=== PATIENT | male | born 1950 | race Caucasian/White ===

== ENCOUNTER → 2021-07-09 | Outpatient (CLI) | payer MEDICARE, OTHER ==
[~2021-07-09] MED LIST: ALLOPURINOL100 MG PO; ANORO ELLIPTA1 EACH INH; AUGMENTIN 875-1 EACH PO; CARDURA2 MG PO; CEFUROXIME250 MG PO; CYANOCOBAL1000 MCG/1 INJ; DOK100 MG PO; ECOTRIN81 MG PO; FINASTERIDE5 MG PO; FLUZONE QU60 MCG/018 IM; IMDUR ER TAB 3030 MG PO; IMDUR ER TAB 6060 MG PO; LASIX 40 MG TAB40 MG PO; LEVEMIR100 UNIT/1 SQ; LYRICA50 MG PO; NITROSTAT0.4 MG SL; NORVASC5 MG PO; NOVOLOG 10100 UNITS/ SC; PERCOCET 10-321 EACH PO; PLAVIX75 MG PO; PREDNISONE 10 M10 MG PO; RANEXA500 MG PO; REMERON15 MG PO; VENTOLIN HFA 66.7 GM INH; ZOCOR20 MG PO; [UNRECOGNIZED DRUG - REMARK] XX
== END ==
LOC: KOH-I 11:04
DX: J20.9 Acute bronchitis, unspecified (principal)
CPT/HCPCS: 71046

== ENCOUNTER 2021-11-13 15:11 | Emergency (ER) | payer MEDICARE, OTHER ==
[2021-11-13 15:42] LABS: HEMOGLOBIN 14.4 gm/dl (14.0-17.5); RED BLOOD COUNT 4.46 M/UL (4.20-5.50); WHITE BLOOD COUNT 10.6 K/UL (4.5-11.0)
[2021-11-13 16:13] LABS: BUN/CREATININE RATIO 15 (0-10)
== END 2021-11-13 18:14 | disposition home or self-care (01) ==
LOC: ER1 15:11
PROVIDERS: Physician Assistant
DX: E16.2 Hypoglycemia, unspecified (principal); I12.9 Hypertensive chronic kidney disease with stage 1 through stage 4 chronic kidney disease, or unspecified chronic kidney disease; N18.9 Chronic kidney disease, unspecified; Z95.1 Presence of aortocoronary bypass graft; Z90.49 Acquired absence of other specified parts of digestive tract; Z88.2 Allergy status to sulfonamides
CPT/HCPCS: 71045; 80048; 82550; 82553; 82962; 83690; 83874; 84484; 85025; 93005; 96374; 99285

== ENCOUNTER 2022-02-15 11:02 | Emergency (ER) | payer MEDICARE, OTHER ==
[2022-02-15 13:04] LABS: HEMOGLOBIN 14.5 gm/dl (14.0-17.5); RED BLOOD COUNT 4.51 M/UL (4.20-5.50); WHITE BLOOD COUNT 8.2 K/UL (4.5-11.0)
[2022-02-15] MEDS ORDERED: CEPHALEXIN500 M1 PO (14:08)
== END 2022-02-15 14:30 | disposition home or self-care (01) ==
LOC: ER1 11:02
PROVIDERS: Physician Assistant
DX: R31.9 Hematuria, unspecified (principal); N32.89 Other specified disorders of bladder; I10 Essential (primary) hypertension; J44.9 Chronic obstructive pulmonary disease, unspecified; E10.9 Type 1 diabetes mellitus without complications; Z87.442 Personal history of urinary calculi; Z88.2 Allergy status to sulfonamides; Z88.5 Allergy status to narcotic agent; Z88.8 Allergy status to other drugs, medicaments and biological substances; Z79.82 Long term (current) use of aspirin; Z79.02 Long term (current) use of antithrombotics/antiplatelets; Z95.1 Presence of aortocoronary bypass graft
CPT/HCPCS: 80053; 81001; 85025; 85610; 85730; 87086; 99284

== ENCOUNTER → 2022-03-30 | Outpatient (CLI) | payer MEDICARE, OTHER ==
[~2022-03-30] MED LIST changes: +CEPHALEXIN500 M1 PO
== END ==
LOC: KOH-I 09:56
DX: R31.9 Hematuria, unspecified (principal); N20.0 Calculus of kidney
CPT/HCPCS: 76775

== ENCOUNTER → 2022-05-18 | Outpatient (CLI) | payer MEDICARE, OTHER ==
[2022-05-18 17:06] LABS: HEMOGLOBIN 14.7 gm/dl (14.0-17.5); RED BLOOD COUNT 4.48 M/UL (4.20-5.50); WHITE BLOOD COUNT 9.1 K/UL (4.5-11.0)
== END ==
LOC: LAB 16:29
PROVIDERS: Nurse Practitioner Family
DX: I13.0 Hypertensive heart and chronic kidney disease with heart failure and stage 1 through stage 4 chronic kidney disease, or unspecified chronic kidney disease (principal); I50.9 Heart failure, unspecified; N18.30 Chronic kidney disease, stage 3 unspecified; J44.9 Chronic obstructive pulmonary disease, unspecified; I25.10 Atherosclerotic heart disease of native coronary artery without angina pectoris
CPT/HCPCS: 36415; 71046; 80048; 83880; 85025

== ENCOUNTER 2022-06-04 08:03 | Inpatient (IN) | payer MEDICARE, OTHER ==
[~2022-06-04] VITALS: Ht 167.6 cm; Wt 96.7 kg
[~2022-06-04 08:03] MED LIST changes: +DOCUSATE SODIU100 MG PO; -DOK100 MG PO; -IMDUR ER TAB 6060 MG PO; +ISOSORBIDE MONO30 MG PO; -NOVOLOG 10100 UNITS/ SC; +NOVOLOG 10100 UNITS/ SQ; +PROAIR HFA8.5 GM INH; -VENTOLIN HFA 66.7 GM INH
[2022-06-04 08:38] LABS: HEMOGLOBIN 16.3 gm/dl (14.0-17.5); RED BLOOD COUNT 4.84 M/UL (4.20-5.50); WHITE BLOOD COUNT 7.4 K/UL (4.5-11.0)
[2022-06-04] MEDS ORDERED: ADVAIR 250-501 EACH INH (11:03)
[2022-06-04] MEDS ORDERED: OMEPRAZOLE20 MG PO (11:04)
[2022-06-04] MEDS ORDERED: ATORVASTATIN CA20 MG PO (11:04)
[2022-06-04] MEDS ORDERED: POTASSIUM CHLO20 ME2 PO (11:05)
[2022-06-04] MEDS ORDERED: ENTRESTO 24 MG1 EACH PO (11:06)
[2022-06-04] MEDS ORDERED: BETHANECHOL CHL25 MG PO (11:06)
[2022-06-04] MEDS ORDERED: FUROSEMIDE40 MG PO (11:36)
[2022-06-04] MEDS ORDERED: NITROGLYCERIN0.4 MG SL (11:37)
[2022-06-05 04:48] LABS: HEMOGLOBIN 14.7 gm/dl (14.0-17.5); RED BLOOD COUNT 4.51 M/UL (4.20-5.50)
[2022-06-05 04:50] LABS: WHITE BLOOD COUNT 12.8 K/UL (4.5-11.0)
[2022-06-06 02:25] LABS: HEMOGLOBIN 14.4 gm/dl (14.0-17.5); RED BLOOD COUNT 4.45 M/UL (4.20-5.50); WHITE BLOOD COUNT 14.7 K/UL (4.5-11.0)
[2022-06-07 03:06] LABS: HEMOGLOBIN 14.2 gm/dl (14.0-17.5); RED BLOOD COUNT 4.36 M/UL (4.20-5.50)
[2022-06-07 03:15] LABS: WHITE BLOOD COUNT 10.2 K/UL (4.5-11.0)
[2022-06-08 02:08] LABS: HEMOGLOBIN 14.9 gm/dl (14.0-17.5); RED BLOOD COUNT 4.57 M/UL (4.20-5.50); WHITE BLOOD COUNT 8.6 K/UL (4.5-11.0)
[2022-06-09 01:26] LABS: HEMOGLOBIN 15.5 gm/dl (14.0-17.5); RED BLOOD COUNT 4.72 M/UL (4.20-5.50); WHITE BLOOD COUNT 10.6 K/UL (4.5-11.0)
[2022-06-09] MEDS ORDERED: BUMETANIDE1 MG PO (12:59)
[2022-06-09] MEDS ORDERED: ENTRESTO 24 MG1 EACH PO (12:59)
[2022-06-09] MEDS ORDERED: [UNRECOGNIZED DRUG - OTHER] XX (12:59)
[2022-06-09] MEDS ORDERED: ADVAIR 250-501 EACH INH (12:59)
== END 2022-06-09 14:15 | disposition home or self-care (01) | DRG 291 ==
LOC: ER1 08:03 → CDU 10:20 → M/S 10:20 → PROG CARE 10:20 → M/S 12:31 → PROG CARE 06-05 01:30
PROVIDERS: Family Medicine; Internal Medicine; Internal Medicine Nephrology; Physician Assistant Medical; ADMIT Family Medicine
PROC: B24BZZZ Ultrasonography of Heart with Aorta (ICD-10-PCS; principal; 2022-06-05)
DX: I13.0 Hypertensive heart and chronic kidney disease with heart failure and stage 1 through stage 4 chronic kidney disease, or unspecified chronic kidney disease (principal); I50.33 Acute on chronic diastolic (congestive) heart failure; J96.21 Acute and chronic respiratory failure with hypoxia; Z20.822 Contact with and (suspected) exposure to COVID-19; N30.00 Acute cystitis without hematuria; N18.4 Chronic kidney disease, stage 4 (severe); E87.3 Alkalosis; E66.9 Obesity, unspecified; E78.5 Hyperlipidemia, unspecified; E87.5 Hyperkalemia; J44.9 Chronic obstructive pulmonary disease, unspecified; M19.90 Unspecified osteoarthritis, unspecified site; E11.65 Type 2 diabetes mellitus with hyperglycemia; E11.22 Type 2 diabetes mellitus with diabetic chronic kidney disease; I08.1 Rheumatic disorders of both mitral and tricuspid valves; G89.4 Chronic pain syndrome; M51.36 Other intervertebral disc degeneration, lumbar region; M10.9 Gout, unspecified; R53.81 Other malaise; I27.20 Pulmonary hypertension, unspecified; Z90.49 Acquired absence of other specified parts of digestive tract; Z87.891 Personal history of nicotine dependence; Z95.1 Presence of aortocoronary bypass graft; Z88.1 Allergy status to other antibiotic agents; Z88.2 Allergy status to sulfonamides; Z83.3 Family history of diabetes mellitus; Z95.5 Presence of coronary angioplasty implant and graft; Z99.81 Dependence on supplemental oxygen; Z87.442 Personal history of urinary calculi; Z87.01 Personal history of pneumonia (recurrent); Z68.35 Body mass index [BMI] 35.0-35.9, adult
CPT/HCPCS: ECHO; 36415; 36600; 71045; 71250; 80048; 80053; 81001; 82550; 82553; 82570; 82803; 82962; 83540; 83550; 83605; 83735; 83880; 84100; 84132; 84156; 84484; 85025; 85027; 85610; 85652; 86140; 87040; 87086; 92610; 93005; 93306; 94640; 94660; 94760; 96374; 96375; 97110; 97110-GP-CQ; 97116; 97116-GP-CQ; 97162; 97165; 97530; 97530-GP-CQ; 99285; C9113; J0696; J1120; J1940; J2405; J2543; J2930; P9047

== ENCOUNTER 2022-06-10 13:49 | Emergency (ER) | payer MEDICARE, OTHER ==
[~2022-06-10 13:49] MED LIST changes: +ADVAIR 250-501 EACH INH; +ATORVASTATIN CA20 MG PO; +BETHANECHOL CHL25 MG PO; +BUMETANIDE1 MG PO; +ENTRESTO 24 MG1 EACH PO; +FUROSEMIDE40 MG PO; +NITROGLYCERIN0.4 MG SL; +OMEPRAZOLE20 MG PO; +POTASSIUM CHLO20 ME2 PO; +[UNRECOGNIZED DRUG - OTHER] XX
[2022-06-10 14:29] LABS: HEMOGLOBIN 15.3 gm/dl (14.0-17.5); RED BLOOD COUNT 4.72 M/UL (4.20-5.50); WHITE BLOOD COUNT 8.8 K/UL (4.5-11.0)
[2022-06-10 15:00] LABS: BUN/CREATININE RATIO 18 (0-10)
== END 2022-06-10 15:30 | disposition home or self-care (01) ==
LOC: ER1 13:49
PROVIDERS: Nurse Practitioner
DX: I63.9 Cerebral infarction, unspecified (principal); R29.707 NIHSS score 7; E86.0 Dehydration
CPT/HCPCS: 70450; 71045; 80053; 82140; 82550; 82553; 83605; 83880; 84484; 85025; 85610; 85652; 85730; 86140; 87040; 93005; 99285

== ENCOUNTER 2022-07-10 13:07 | Emergency (ER) | payer MEDICARE, OTHER ==
[2022-07-10 14:18] LABS: HEMOGLOBIN 14.8 gm/dl (14.0-17.5); RED BLOOD COUNT 4.65 M/UL (4.20-5.50); WHITE BLOOD COUNT 8.9 K/UL (4.5-11.0)
[2022-07-10] MEDS ORDERED: BLOOD TEST (20:57)
== END 2022-07-10 21:20 | disposition home or self-care (01) ==
LOC: ER1 13:07
PROVIDERS: Emergency Medicine
DX: E11.649 Type 2 diabetes mellitus with hypoglycemia without coma (principal); E11.22 Type 2 diabetes mellitus with diabetic chronic kidney disease; N18.9 Chronic kidney disease, unspecified; E87.5 Hyperkalemia; I13.10 Hypertensive heart and chronic kidney disease without heart failure, with stage 1 through stage 4 chronic kidney disease, or unspecified chronic kidney disease; Z95.1 Presence of aortocoronary bypass graft; Z88.8 Allergy status to other drugs, medicaments and biological substances
CPT/HCPCS: 80048; 80053; 82550; 82553; 82962; 84484; 85025; 99284

== ENCOUNTER → 2022-08-12 | Outpatient (CLI) | payer MEDICARE, OTHER ==
[~2022-08-12] MED LIST changes: +BLOOD TEST
== END ==
LOC: KOH-I 06-30 13:00
DX: R10.9 Unspecified abdominal pain (principal); N20.0 Calculus of kidney
CPT/HCPCS: 76775; 76857